=== PATIENT | male | born 1990 | race Caucasian/White ===

== ENCOUNTER 2018-12-22 12:00 | Emergency (ER) | payer MEDICAID ==
[~2018-12-22] VITALS: Ht 185.4 cm; Wt 102.3 kg
[~2018-12-22 12:00] MED LIST: ALBU8.5H8 INH; FAMO-96 PO; GUAI120S25 PO; HC30CR25 TOP; MAG-19 PO
[2018-12-22 12:12] VITALS: Ht 185.4 cm; Wt 102.3 kg
[2018-12-22] MEDS ORDERED: DICYCLOMINE 10 MG CAP PO ONE (14:00)
[2018-12-22] MEDS ORDERED: LIDOCAINE/MYLANTA 40 ML BTL PO ONE (14:00)
[2018-12-22 14:38] VITALS: BP 128/68; PULSE 51; RESP 16
--- NOTE | 2018-12-22 17:08 | ERD ---
ER Documentation Chief Complaint Chief Complaint CHANGE IN BOWEL HABITS 1 WK AGO WITH BLOOD IN STOOL NOTICED YESTERDAY HPI 28-year-old male patient in the ED for abdominal pain no change in bowel habits x1 week ago. Patient states that he is only in mild pain and rates it a 4 out of 10 he states he always feels gassy after he eats and that it seems like it never goes away. Patient denies any past medical history patient states he is not currently taking any medications and states that he has no allergies to medication. Patient states he is also had a little bit of a cough going on for the last few weeks but he is a smoker. ROS All systems reviewed and are negative except as per history of present illness. Medications Home Meds Active Scripts Albuterol Sulfate* (Proair HFA*) 8.5 Gm Hfa.aer.ad, 2 PUFF INH Q4, #1 INHALER Prov:GÓMEZ KRUEGER PA-C 12/22/18 Hydrocortisone* Topical (Hydrocortisone* Topical) 2.5%-28.3 Gm Cream..g., 1 APPLIC TOP BID, #1 TUB Prov:GÓMEZ KRUEGER PA-C 12/22/18 Magaldrate/Simethicone* (Mylanta*) 355 Ml Susp, 30 ML PO QID PRN for GASTROINTESTINAL UPSET, #1 BOTTLE Prov:GÓMEZ KRUEGER PA-C 12/22/18 Famotidine* (Pepcid*) 20 Mg Tablet, 20 MG PO BID for 30 Days, TAB Prov:GÓMEZ KRUEGER PA-C 12/22/18 Esqtlbbnurw-U-Ehewrscsjt Hb* (Guaifenesin* DM Syrup) 120 Ml Syrup, 10 ML PO Q4H PRN for COUGH for 7 Days, ML Prov:GÓMEZ KRUEGER PA-C 12/22/18 Allergies Allergies: Coded Allergies: No Known Allergy (Unverified , 12/22/18) PMhx/Soc Medical and Surgical Hx: pt denies Medical Hx, pt denies Surgical Hx Hx Alcohol Use: Yes (QD) Hx Substance Use: Yes (marijuana) Hx Tobacco Use: Yes Smoking Status: Current some day smoker FmHx Family History: No diabetes, No coronary disease, No other Physical Exam Vitals Vital Signs Date Temp Pulse Resp B/P (MAP) Pulse Ox O2 O2 Flow FiO2 Time Delivery Rate 12/22/18 98.0 51 16 128/68 97 Room Air 14:38 (88) 12/22/18 98.3 70 16 164/73 99 12:12 (103) Physical Exam GENERAL: The patient is well-appearing, well-nourished, in no acute distress HEENT: Atraumatic. Conjunctivae are pink. Pupils equal, round, and reactive to light. There is no scleral icterus. Tympanic membranes clear bilaterally. Oropharynx clear. No nystagmus or photophobia. NECK: C-spine is soft and supple. There is no meningismus. There is no cervical lymphadenopathy. CHEST: Clear to auscultation bilaterally. There are no rales, wheezes or rhonchi. HEART: Regular rate and rhythm. No murmurs, clicks, rubs or gallops. ABDOMEN:Soft, nontender and nondistended. Good bowel sounds. No rebound or guarding. No gross peritonitis. No gross organomegaly or masses. No Omalley sign or McBurney point tenderness. BACK: No midline or flank tenderness. Results 24 hrs Current Medications Medications Dose Sig/Jenn Start Time Status Last (Trade) Ordered Route PRN Stop Time Admin Dose Reason Admin Dicyclomine 10 mg ONCE ONCE 12/22/18 DC 12/22/18 HCl PO 14:00 13:47 (Bentyl) 12/22/18 14:01 40 ml ONCE ONCE 12/22/18 DC 12/22/18 Miscellaneous PO 14:00 13:46 Medication 12/22/18 14:01 (Gi Cocktail (2)) Procedures/MDM ED course: The patient was stable throughout the ED course. The patient and/or family informed of laboratory and diagnostic imaging results throughout the ED course. Medications given in ER: GI cocktail Bentyl Patient tolerated medication well with no adverse reactions. Patient reported improvement in pain. Medical decision makin-year-old male presented to ED for abdominal pain and change in bowel habits x1 week. Patient's physical exam was unremarkable patient's abdomen was soft nontender rectal exam was notable for non-hemorrhagic hemorrhoid. Patient's lungs were clear bilateral but patient states that he has had it at home: Normal for last week. Patient's vitals were all normal limits. Patient was given a GI cocktail and Bentyl in the ED and upon reevaluation the patient states his symptoms have completely improved and he feels much better. At this time I have low suspicion for pneumonia, acute appendicitis, cholecystitis, GI bleed, sepsis. Advised the patient if symptoms worsen he should return to ED otherwise follow-up with primary care provider in 1 to 2 days regarding this visit. Prescription for home: Pro Air Hydrocortisone topical Mylanta Pepcid Guaifenesin I have discussed with the patient proper use and common side effects to expert with the medication . I advised the patient/family to speak with the pharmac ist dispensing the medication to be advised of any potential drug interactions with other medication or supplements they may be taking. Discharge: At this time, patient is stable for discharge and outpatient management. I have instructed the patient to follow-up with his\her primary care physician in 1 to 2 days. I have discussed with the patient the possibility of needing to see a specialist for further work-up and imaging studies if symptoms persist. I have instructed the patient to promptly return to the ER for any new or worsening symptoms including increased pain, fever, nausea, vomiting, weakness or LOC. The patient and\or family expressed understanding of and agreement with this plan. All questions were answered. Home care instructions were provided. Disclaimer: Inadvertent spelling and grammatical errors are likely due to EHR\dictation software use and do not reflect on the overall quality of patient care. Also, please note that the electronic time recorded on the note does not necessarily reflect the actual time of the patient encounter. Departure Diagnosis: Primary Impression: GERD (gastroesophageal reflux disease) Esophagitis presence: without esophagitis Qualified Codes: K21.9 - Gastro- esophageal reflux disease without esophagitis Additional Impressions: Internal hemorrhoid Cough Condition: Stable Additional Instructions: Call your primary care doctor TOMORROW for an appointment during the next 1-2 days.See the doctor sooner or return here if your condition worsens before your appointment time. GÓMEZ KRUEGER PA-C Dec 22, 2018 17:08
== END 2018-12-22 14:39 | disposition home or self-care (01) ==
LOC: FTE 12:00
DX: K21.9 Gastro-esophageal reflux disease without esophagitis (principal); F17.210 Nicotine dependence, cigarettes, uncomplicated; R05 Cough; K64.8 Other hemorrhoids
CPT/HCPCS: Z7502; Z7610; 99283